=== PATIENT | male | born 1950 | race Caucasian/White ===

== ENCOUNTER 2016-12-09 16:40 | Emergency (ER) | payer SELFPAY ==
[2016-12-09] MEDS ORDERED: Nitroglycerin 0.4 MG TAB (25 Tab Bottle) ONE (16:55)
[2016-12-09] MEDS ORDERED: Nitroglycerin 2% Ointment 1 INCH/1 GM Packet ONE (16:55)
[2016-12-09 17:00] LABS: #Basophils 0.1 thou/uL (0.0-0.2); #Eosinphils 0.2 thou/uL (0.0-0.7); #Monocytes 0.8 thou/uL (0.11-0.59); %Basophils 1.2 % (0.0-1.0); %Eosinophils 1.6 % (0.0-10.0); %Lymphocytes 29.4 % (21.0-51.0); %Monocytes 8.2 % (0.0-10.0); %Neutrophils 59.7 % (42.0-75.0); Hemoglobin 16.2 g/dL (14.0-18.0); Mean Corpuscular HGB CONC 32.9 g/dL (32.0-36.0); Mean Corpuscular Hemoglobin 28.3 pg (27.0-31.0); Mean Corpuscular Volume 86.2 fl (80.0-94.0); Mean Platelet Volume 7.5 fL (7.4-10.4); Platelet Count 230 thou/uL (130-400); RBC Distribution Width 12.1 % (11.5-14.5); Red Blood Cell (RBC) Count 5.73 mill/uL (4.70-6.10)
[2016-12-09 17:06] LABS: PTT 26.5 SEC (22.9-36.1); Prothrombin Time 13.5 SEC (12.0-14.7)
[2016-12-09 17:13] LABS: ALT (SGPT) 42 U/L (0-55); AST (SGOT) 32 U/L (5-34); Alkaline Phosphatase 75 U/L (40-150); Anion Gap 12 mmol/L (10-20); BUN (Urea Nitrogen) 15 mg/dL (8.4-25.7); Bilirubin, Total 0.5 mg/dL (0.2-1.2); Calc. Creatinine Clearance 0 mL/min (70-130); Calcium 9.3 mg/dL (7.8-10.44); Carbon Dioxide 23 mmol/L (23-31); Chloride 107 mmol/L (98-107); Estimated GFR-MDRD 67; Globulin 3.3 g/dL (2.4-3.5); Glucose 96 mg/dL (80-115); Lipase 57 U/L (8-78); Potassium 4.2 mmol/L (3.5-5.1); Protein, Total 7.3 g/dL (5.8-8.1); Sodium 138 mmol/L (136-145)
[2016-12-09 17:16] LABS: CKMB 1.9 ng/mL (0-6.6); Troponin I Less than 0.010 ng/mL (< 0.028)
[2016-12-09] MEDS ORDERED: Enoxaparin Sodium 100 MG/ML SYRINGE ONE (17:17)
[2016-12-09] MEDS ORDERED: Nitroglycerin 50 MG/250 ML BOT 250 ML ONE (17:32)
--- NOTE | 2016-12-09 21:49 | RAD ---
PORTABLE CHEST 12/09/16 An AP portable film at 1700 is compared with an 05/06/15 study. Mild to moderate cardiomegaly is about the same. There is no clear congestive change at the moment. No large lobar infiltrate was seen. It is very difficulty in this patient to completely clear the le ft base of infiltrate due to the portable technique and overlapping soft tissues. The trachea is mid line. IMPRESSION: Cardiomegaly. Left base seen poorly. POS: HOME
== END 2016-12-09 18:33 | disposition short-term general hospital (02) ==
LOC: BURERS 16:40
DX: I20.0 Unstable angina (principal); I10 Essential (primary) hypertension; Z79.82 Long term (current) use of aspirin; Z79.899 Other long term (current) drug therapy
CPT/HCPCS: 71010; 80053; 82553; 83690; 84484; 85025; 85379; 85610; 85730; 93005; 94760; 96365; 96372; J1650

== ENCOUNTER 2017-11-05 11:09 | Emergency (ER) | payer OTHER, SELFPAY ==
[2017-11-05 11:35] LABS: Bilirubin Negative (Negative); Blood, Urine Trace (Negative); Clarity Slightly Cloudy (Clear); Glucose, Urine (Dipstick) Negative (Negative); Leukocyte Negative (Negative); Nitrite Negative (Negative); Protein, Urine (Dipstick) Negative (Neg-Trace); Specific Gravity, Urine 1.025 (1.005-1.030)
[2017-11-05 11:42] LABS: Bacteria/HPF Rare-Few HPF (None Seen); RBC/HPF 0-3 HPF (0-3); Squamous Epithelial None Seen HPF (0-3); WBC/HPF 0-3 HPF (0-3)
[2017-11-05 11:45] LABS: #Basophils 0.1 thou/uL (0.0-0.2); #Eosinphils 0.1 thou/uL (0.0-0.7); #Lymphocytes 1.8 thou/uL (1.20-3.40); #Monocytes 1.1 thou/uL (0.11-0.59); #Neutrophils 9.1 thou/uL (1.40-6.50); %Basophils 1.1 % (0.0-1.0); %Eosinophils 0.7 % (0.0-10.0); %Lymphocytes 15.1 % (21.0-51.0); %Monocytes 8.9 % (0.0-10.0); %Neutrophils 74.3 % (42.0-75.0); Hemoglobin 17.4 g/dL (14.0-18.0); Mean Corpuscular Hemoglobin 28.7 pg (27.0-31.0); Mean Corpuscular Volume 84.5 fl (80.0-94.0); Mean Platelet Volume 7.9 fL (7.4-10.4); Platelet Count 171 thou/uL (130-400); RBC Distribution Width 12.3 % (11.5-14.5); Red Blood Cell (RBC) Count 6.04 mill/uL (4.70-6.10); White Blood Cell (WBC) Count 12.2 thou/uL (4.8-10.8)
[2017-11-05] MEDS ORDERED: Lorazepam 2 MG/ML VIAL ONE (11:48)
[2017-11-05 12:02] LABS: ALT (SGPT) 39 U/L (8-55); AST (SGOT) 34 U/L (5-34); Albumin 3.8 g/dL (3.4-4.8); Alkaline Phosphatase 64 U/L (40-150); Anion Gap 15 mmol/L (10-20); BUN (Urea Nitrogen) 16 mg/dL (8.4-25.7); Calc. Creatinine Clearance 0 mL/min (70-130); Calcium 9.3 mg/dL (7.8-10.44); Carbon Dioxide 21 mmol/L (23-31); Chloride 106 mmol/L (98-107); Estimated GFR-MDRD 46; Globulin 3.2 g/dL (2.4-3.5); Glucose 104 mg/dL (80-115); Potassium 4.2 mmol/L (3.5-5.1); Sodium 138 mmol/L (136-145)
[2017-11-05] MEDS ORDERED: Morphine 4 MG/ML Carpuject ONE (12:22)
[2017-11-05] MEDS ORDERED: Ondansetron HCl/PF 4 MG/2 ML Vial ONE (12:22)
--- NOTE | 2017-11-05 16:41 | CT ---
CT ABDOMEN AND PELVIS WITHOUT CONTRAST 11/05/[address] of the abdomen and pelvis was performed for evaluation of left flank pain and inability to void. Axial slices were acquired, then coronal reconstructions were done. The lung bases show that there is a very large amount of mediastinal fat and apparently some of the mesenteric fat has herniated through the diaphragm centrally. The liver, spleen, pancreas, adrenal gl ands, and abdominal aorta showed no acute findings. The gallbladder is a bit denser than usual but no calcifications or stranding were seen around it. Renal calculi are present bilaterally with a very large one present in the lower pole of the left kid robin. Additionally, there is a 5 mm proximal left ureteral calculus just a few centimeters below the U PJ causing moderate left hydronephrosis. The ureters assume a more normal size after that point. The urinary bladder is decompressed. No free air or free fluid was seen in the abdomen. The bowel shows no sign of obstruction or inflamma tory change. The appendix appears normal. Diverticulosis without diverticulitis is noted. A very mini mal fat filled umbilical hernia was present. CT of the pelvis shows no pelvic masses, fluid collections, or inflammatory changes. I cannot really evaluate the urinary bladder well as there does not appear to be any fluid within it at the moment. D ensity within is presumably due to it being either collapsed and/or prostatic enlargement. The urinar y bladder may deserve further followup after this acute episode. IMPRESSION: 1. 5 mm proximal left ureteral calculus causing moderate left hydronephrosis. 2. Bilateral renal calculi, predominantly on the patient's left side. 3. Urinary bladder decompressed. I cannot tell if there is actually tissue within the bladder or it is just merely decompressed. Elective ultrasound followup with better distention of the bladder w ould be prudent. 4. 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 POS: HOME
== END 2017-11-05 12:49 | disposition home or self-care (01) ==
LOC: BURERS 11:09
DX: N13.2 Hydronephrosis with renal and ureteral calculous obstruction (principal); I10 Essential (primary) hypertension; I25.2 Old myocardial infarction; Z79.899 Other long term (current) drug therapy; Z79.82 Long term (current) use of aspirin
CPT/HCPCS: 74176; 80053; 81003; 81015; 85025; 96374; 96375; J2060; J2270; J2405

== ENCOUNTER 2018-07-08 08:33 | Emergency (ER) | payer MEDICAID ==
--- NOTE | 2018-07-08 10:42 | RAD ---
THREE VIEWS RIGHT WRIST: DATE: 07/08/2018. HISTORY: Right wrist pain. FINDINGS: There is osteoarthritis involving the 1st carpometacarpal joint and metacarpophalangeal joint of the thumb. No fracture or dislocation is seen. No other osseous abnormality. IMPRESSION: Osteoarthritis, but no acute osseous abnormality is seen involving the right wrist. POS: [facility]
--- NOTE | 2018-07-08 10:45 | RAD ---
THREE VIEWS RIGHT SHOULDER: DATE: 07/08/2018. HISTORY: Right shoulder pain after injury. FINDINGS: There is right acromioclavicular joint osteoarthritis. The coracoclavicular and acromioclavicular di stances are within normal limits. No fracture or dislocation is seen involving the right shoulder. There is a radiopaque density overlying the upper aspect of the right shoulder likely related to over lying artifact, but clinical correlation is recommended. No other findings. IMPRESSION: 1. No acute osseous abnormality of the right shoulder. 2. Right acromioclavicular joint osteoarthritis. 3. Radiopaque density overlying right shoulder which overlies the distal right clavicle and supracla vicular soft tissues which is most likely attributable to overlying artifact. Clinical correlation i s recommended. POS: [facility]
== END 2018-07-08 09:30 | disposition home or self-care (01) ==
LOC: BURERS 08:33
DX: S43.401A Unspecified sprain of right shoulder joint, initial encounter (principal); I10 Essential (primary) hypertension; I25.2 Old myocardial infarction; E78.00 Pure hypercholesterolemia, unspecified; Z79.82 Long term (current) use of aspirin; Z79.899 Other long term (current) drug therapy; W01.0XXA Fall on same level from slipping, tripping and stumbling without subsequent striking against object, initial encounter

== ENCOUNTER 2018-09-09 12:11 | Outpatient (CLI) | payer MEDICARE, MEDICAID ==
--- NOTE | 2018-09-09 15:54 | CT ---
CT ABDOMEN AND PELVIS WITHOUT CONTRAST 09/09/[address] of the abdomen and abdomen and pelvis was done for evaluation of right flank pain. comparis on is made with a prior study dated 11/05/17. Axial slices were acquired, then coronal reconstructions were obtained. The lung bases are clear except for some dependent atelectasis or scarring. The liver, spleen, pancre as, gallbladder, adrenal glands and abdominal aorta showed no acute findings. A large calculus is se en in the lower pole of the left kidney as before. It is similar in appearance. No other renal calcul i were seen. While there is no hydronephrosis, there is a small calcification seen anterior to the ri t common iliac artery that measures 2 to 3 mm in size. It was not present on the October 2017 scan . I suspect it may be a small nonobstructing calculus given the history of right flank pain. There is certainly no ureteral dilation, however. The bowel shows no distention or inflammatory change around it. No free air or free fluid was seen. A few scattered diverticula are present. A minimal fat filled umbilical hernia is present. CT of the pelvis shows no external masses, fluid collections or inflammatory changes. Attention is d rawn to the urinary bladder. On the prior scan it was mentioned that it was collapsed and could not b e completely evaluated. There was some soft tissue density in it of uncertain etiology. This continue s to be present on today's scan in a similar fashion. I feel it is very important for this patient to be referred to a urologist for evaluation of the bladder. I cannot rule out internal pathology. Degenerative changes are prominent in the lumbar spine. There is a compression of the T12 vertebra wh ich has been mentioned previously. IMPRESSION: 1. Large left renal calculus, stable. 2. Small calcification in or near the lower right ureter at about the S1 level. Not present on a October scan. The possibility of a tiny nonobstructing 2-3 mm ureteral calculus is raised, given t he current presentation of right flank pain. 3. Soft tissue density continues in the collapsed urinary bladder. Further workup is needed to r ule out pathology. Findings and need for followup with urologist discussed with Leah Horowitz at 1303 on 09/09/18. POS: HOME
== END 2018-09-09 12:12 | disposition home or self-care (01) ==
LOC: BURRAD 12:11
PROVIDERS: ATTEND Physician Assistant
DX: R10.9 Unspecified abdominal pain (principal); N20.0 Calculus of kidney; N28.89 Other specified disorders of kidney and ureter; N32.89 Other specified disorders of bladder
CPT/HCPCS: 74176

== ENCOUNTER 2018-09-11 21:25 | Emergency (ER) | payer MEDICAID, MEDICARE | END 2018-09-11 21:38 | disposition home or self-care (01) | LOC: BURERS 21:25 | DX: B02.9 Zoster without complications (principal); I10 Essential (primary) hypertension; I25.2 Old myocardial infarction; E78.00 Pure hypercholesterolemia, unspecified; Z79.82 Long term (current) use of aspirin; Z79.899 Other long term (current) drug therapy | CPT/HCPCS: 99282 ==

== ENCOUNTER 2018-10-12 16:54 | Emergency (ER) | payer MEDICARE, MEDICAID ==
[2018-10-12 17:13] LABS: Clarity Cloudy (Clear)
[2018-10-12 17:14] LABS: Glucose, Urine (Dipstick) Unable to Interpret mg/dL (Negative); Protein, Urine (Dipstick) Unable to Interpret mg/dL (Neg-Trace); Specific Gravity, Urine 1.025 (1.005-1.030)
[2018-10-12 17:15] LABS: Bilirubin Unable to Interpret (Negative); Urobilinogen UNABLE TO INTERPRET mg/dL (0.2-1.0)
[2018-10-12 17:19] LABS: Squamous Epithelial 0-3 HPF (0-3); WBC/HPF 21-50 HPF (0-3)
[2018-10-12 17:20] LABS: Bacteria/HPF 2+ HPF (None Seen); Other Microscopic Description MOCOUS THREADS; RBC/HPF 0-3 HPF (0-3)
[2018-10-12] MEDS ORDERED: Sulfameth/Trimethoprim DS 800-160mg TAB ONE (17:31)
[2018-10-13 06:17] LABS: Leukocyte Unable to Interpret (Negative)
[2018-10-13 06:25] LABS: Nitrite Unable to Interpret (Negative)
[2018-10-13 06:26] LABS: Blood, Urine Unable to Interpret (Negative)
== END 2018-10-12 17:34 | disposition home or self-care (01) ==
LOC: BURERS 16:54
DX: N30.00 Acute cystitis without hematuria (principal); I10 Essential (primary) hypertension; E78.00 Pure hypercholesterolemia, unspecified; I25.2 Old myocardial infarction; Z79.82 Long term (current) use of aspirin; Z79.899 Other long term (current) drug therapy; Z87.442 Personal history of urinary calculi
CPT/HCPCS: 81003; 81015; 99283

== ENCOUNTER 2019-04-16 15:30 | Emergency (ER) | payer MEDICARE, MEDICAID ==
[2019-04-16] MEDS ORDERED: Lisinopril 20 MG TAB ONE (16:17)
[2019-04-16 16:26] LABS: Band 1 % (5-11); Eosinophils 1 % (0-10); Hemoglobin 15.9 g/dL (14.0-18.0); Lymphocytes 32 % (21-51); MDiff Complete? YES; Mean Corpuscular HGB CONC 32.2 g/dL (32.0-36.0); Mean Corpuscular Hemoglobin 27.7 pg (27.0-31.0); Mean Corpuscular Volume 86.3 fL (78.0-98.0); Mean Platelet Volume 6.9 fL (7.4-10.4); Monocytes 6 % (0-10); Neutrophil 60 % (42-75); Platelet Count 195 thou/uL (130-400); RBC Distribution Width 12.6 % (11.5-14.5); Red Blood Cell (RBC) Count 5.71 mill/uL (4.70-6.10); White Blood Cell (WBC) Count 9.4 thou/uL (4.8-10.8)
--- NOTE | 2019-04-16 17:35 | RAD ---
CHEST ONE VIEW: INDICATIONS: Shortness of breath. COMPARISON: Prior exam dated 03/30/2019. FINDINGS: There is cardiomegaly and pulmonary vascular congestion. There is left basilar opacity, suspicious f or atelectasis. No definite pleural effusion or pneumothorax is evident. No acute osseous abnormali ty is evident. IMPRESSION: 1. Cardiomegaly with pulmonary vascular congestion. 2. Left basilar opacity, suspicious for atelectasis. POS: [facility]
[2019-04-16 18:32] LABS: ALT (SGPT) 41 U/L (8-55); AST (SGOT) 36 U/L (5-34); Albumin 4.1 g/dL (3.4-4.8); Alkaline Phosphatase 74 U/L (40-150); Anion Gap 14 mmol/L (10-20); BUN (Urea Nitrogen) 15 mg/dL (8.4-25.7); Bilirubin, Total 0.5 mg/dL (0.2-1.2); Calc. Creatinine Clearance 0 mL/min (70-130); Calcium 9.7 mg/dL (7.8-10.44); Carbon Dioxide 21 mmol/L (23-31); Chloride 107 mmol/L (98-107); Estimated GFR-MDRD 65; Globulin 2.7 g/dL (2.4-3.5); Glucose 102 mg/dL (80-115); Protein, Total 6.8 g/dL (5.8-8.1); Sodium 138 mmol/L (136-145)
== END 2019-04-16 17:05 | disposition home or self-care (01) ==
LOC: BURERS 15:30
DX: I10 Essential (primary) hypertension (principal); I25.2 Old myocardial infarction; Z79.899 Other long term (current) drug therapy; Z87.442 Personal history of urinary calculi; Z79.82 Long term (current) use of aspirin
CPT/HCPCS: 71045; 80053; 83880; 84484; 85025; 85379; 93005

== ENCOUNTER 2019-06-08 11:34 | Emergency (ER) | payer MEDICARE, MEDICAID ==
[2019-06-08 12:14] LABS: #Basophils 0.1 thou/uL (0.0-0.2); #Eosinphils 0.1 thou/uL (0.0-0.7); #Lymphocytes 1.8 thou/uL (1.20-3.40); #Monocytes 0.4 thou/uL (0.11-0.59); #Neutrophils 3.7 thou/uL (1.40-6.50); %Basophils 1.2 % (0.0-1.0); %Eosinophils 1.4 % (0.0-10.0); %Lymphocytes 29.4 % (21.0-51.0); %Monocytes 6.8 % (0.0-10.0); %Neutrophils 61.3 % (42.0-75.0); Hemoglobin 16.3 g/dL (14.0-18.0); Mean Corpuscular HGB CONC 33.1 g/dL (32.0-36.0); Mean Corpuscular Hemoglobin 28.1 pg (27.0-31.0); Mean Corpuscular Volume 84.9 fL (78.0-98.0); Mean Platelet Volume 6.7 fL (7.4-10.4); Platelet Count 192 thou/uL (130-400); RBC Distribution Width 12.6 % (11.5-14.5); Red Blood Cell (RBC) Count 5.79 mill/uL (4.70-6.10); White Blood Cell (WBC) Count 6.1 thou/uL (4.8-10.8)
[2019-06-08 12:25] LABS: ALT (SGPT) 47 U/L (8-55); AST (SGOT) 44 U/L (5-34); Albumin 3.9 g/dL (3.4-4.8); Alkaline Phosphatase 68 U/L (40-150); Anion Gap 14 mmol/L (10-20); BUN (Urea Nitrogen) 15 mg/dL (8.4-25.7); Bilirubin, Total 0.8 mg/dL (0.2-1.2); Calc. Creatinine Clearance 0 mL/min (70-130); Calcium 9.7 mg/dL (7.8-10.44); Carbon Dioxide 25 mmol/L (23-31); Chloride 104 mmol/L (98-107); Estimated GFR-MDRD 62; Globulin 3.1 g/dL (2.4-3.5); Glucose 292 mg/dL (80-115); Potassium 3.9 mmol/L (3.5-5.1); Sodium 139 mmol/L (136-145)
== END 2019-06-08 12:57 | disposition home or self-care (01) ==
LOC: BURERS 11:34
DX: M25.562 Pain in left knee (principal); I10 Essential (primary) hypertension; E78.00 Pure hypercholesterolemia, unspecified; Z86.718 Personal history of other venous thrombosis and embolism; Z79.899 Other long term (current) drug therapy; Z79.82 Long term (current) use of aspirin; I25.2 Old myocardial infarction
CPT/HCPCS: 80053; 83880; 85025; 85379; 99283

== ENCOUNTER 2019-08-27 10:49 | Emergency (ER) | payer MEDICARE, MEDICAID | END 2019-08-27 11:12 | disposition home or self-care (01) | LOC: BURERS 10:49 | DX: J06.9 Acute upper respiratory infection, unspecified (principal); I10 Essential (primary) hypertension; Z87.442 Personal history of urinary calculi; Z86.718 Personal history of other venous thrombosis and embolism; Z79.82 Long term (current) use of aspirin; Z79.899 Other long term (current) drug therapy | CPT/HCPCS: 99283 ==

== ENCOUNTER 2019-09-11 08:22 | Emergency (ER) | payer MEDICARE, MEDICAID ==
[2019-09-11] MEDS ORDERED: HYDROcodone/Acetaminophen 10/325 mg Tablet ONE (08:38)
[2019-09-11] MEDS ORDERED: AMOXicillin 250 MG CAP ONE (08:40)
== END 2019-09-11 08:53 | disposition home or self-care (01) ==
LOC: BURERS 08:22
DX: K04.7 Periapical abscess without sinus (principal); I10 Essential (primary) hypertension; E78.00 Pure hypercholesterolemia, unspecified; Z86.718 Personal history of other venous thrombosis and embolism; Z87.442 Personal history of urinary calculi; Z79.899 Other long term (current) drug therapy; Z79.82 Long term (current) use of aspirin; I25.2 Old myocardial infarction
CPT/HCPCS: 99283

== ENCOUNTER 2020-01-18 13:40 | Emergency (ER) | payer MEDICARE, MEDICAID ==
[2020-01-18 14:08] LABS: #Basophils 0.1 thou/uL (0.0-0.2); #Eosinphils 0.1 thou/uL (0.0-0.7); #Lymphocytes 2.6 thou/uL (1.20-3.40); #Neutrophils 6.5 thou/uL (1.40-6.50); %Eosinophils 1.3 % (0.0-10.0); %Lymphocytes 25.4 % (21.0-51.0); %Monocytes 9.6 % (0.0-10.0); %Neutrophils 62.7 % (42.0-75.0); Hemoglobin 17.8 g/dL (14.0-18.0); Mean Corpuscular HGB CONC 32.8 g/dL (32.0-36.0); Mean Corpuscular Hemoglobin 28.6 pg (27.0-31.0); Mean Corpuscular Volume 87.1 fL (78.0-98.0); Mean Platelet Volume 7.9 fL (7.4-10.4); Platelet Count 231 thou/uL (130-400); RBC Distribution Width 12.3 % (11.5-14.5); Red Blood Cell (RBC) Count 6.22 mill/uL (4.70-6.10); White Blood Cell (WBC) Count 10.3 thou/uL (4.8-10.8)
[2020-01-18 14:16] LABS: ALT (SGPT) 48 U/L (8-55); AST (SGOT) 41 U/L (5-34); Albumin 4.1 g/dL (3.4-4.8); Alkaline Phosphatase 70 U/L (40-110); Anion Gap 14 mmol/L (10-20); BUN (Urea Nitrogen) 12 mg/dL (8.4-25.7); Bilirubin, Total 0.7 mg/dL (0.2-1.2); Calc. Creatinine Clearance 0 mL/min (70-130); Calcium 10.1 mg/dL (7.8-10.44); Carbon Dioxide 23 mmol/L (23-31); Chloride 106 mmol/L (98-107); Estimated GFR-MDRD 53; Globulin 3.2 g/dL (2.4-3.5); Glucose 179 mg/dL (80-115); Protein, Total 7.3 g/dL (5.8-8.1); Sodium 139 mmol/L (136-145)
--- NOTE | 2020-01-18 16:52 | RAD ---
CHEST TWO VIEWS: 01/18/20 Comparison is made with the prior study of 04/16/19. Mild cardiomegaly is about the same as before. There is no vascular congestion or edema. There may be some basilar atelectasis or scarring. IMPRESSION: No acute thoracic findings. Exam similar to the 2019 study. POS: HOME
--- NOTE | 2020-01-18 18:10 | CT ---
CT ANGIO OF THE CHEST 01/18/20 COMPARISON: Comparison is made with the lower chest slices on a CT abdomen and pelvis done 10/04/18. A bolus of IV contrast was given, however, the triggering mechanism on the CT was mistimed so these a re mainly arterial phase images with very little contrast in the pulmonary arterial system. As such, the sensitivity to pulmonary embolism is quite low. While there is no obvious large defects in the central pulmonary arteries, the phase of contrast imani pherally yields this as a basically indeterminate study for pulmonary embolism. There is no sign of a ortic aneurysm or dissection. Calcification appears to be present in the left main coronary artery an d in the LAD. There may be some in the right coronary as well. There is no sign of pericardial effusi on. 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 This was present on last year's CT scan, so is not new. The lungs themselves showed no major infiltrate or effusion. There are some areas of ple ural thickening and fatty deposition in the pleura, particularly posteriorly adjacent to the lower lo bes. This is similar to the prior study as well. Scans in the upper abdomen showed a portion of the l iver and spleen but not all of them. The visible areas showed no acute change. The adrenal glands wer e not surveyed. IMPRESSION: Indeterminate study for pulmonary embolism. Given the patient's low GFR, one may need to wait to rein ject him. A nuclear VQ scan may be an option in the interim. Findings discussed with Dr. Beckwith at 1520 on 01/18/2020. POS: HOME
== END 2020-01-18 16:57 | disposition home or self-care (01) ==
LOC: BURERS 13:40
DX: R06.00 Dyspnea, unspecified (principal); I10 Essential (primary) hypertension; E78.00 Pure hypercholesterolemia, unspecified; I25.2 Old myocardial infarction; Z86.718 Personal history of other venous thrombosis and embolism; Z87.442 Personal history of urinary calculi; Z79.82 Long term (current) use of aspirin; Z79.899 Other long term (current) drug therapy
CPT/HCPCS: 71046; 71275; 80053; 83880; 84484; 85025; 85379; 93005; 94760; 96360; 96361

== ENCOUNTER 2020-12-10 14:42 | Emergency (ER) | payer MEDICARE, MEDICAID ==
[2020-12-10 15:29] LABS: #Basophils 0.1 thou/uL (0.0-0.2); #Eosinphils 0.1 thou/uL (0.0-0.7); #Lymphocytes 2.2 thou/uL (1.20-3.40); #Monocytes 0.7 thou/uL (0.11-0.59); #Neutrophils 3.6 thou/uL (1.40-6.50); %Basophils 1.1 % (0.0-1.0); %Eosinophils 1.9 % (0.0-10.0); %Lymphocytes 33.3 % (21.0-51.0); %Monocytes 10.2 % (0.0-10.0); %Neutrophils 53.4 % (42.0-75.0); Mean Corpuscular HGB CONC 33.5 g/dL (32.0-36.0); Mean Corpuscular Hemoglobin 28.7 pg (27.0-31.0); Mean Corpuscular Volume 85.8 fL (78.0-98.0); Mean Platelet Volume 8.4 fL (7.4-10.4); Platelet Count 176 thou/uL (130-400); RBC Distribution Width 12.6 % (11.5-14.5); Red Blood Cell (RBC) Count 5.92 mill/uL (4.70-6.10); White Blood Cell (WBC) Count 6.7 thou/uL (4.8-10.8)
[2020-12-10 15:41] LABS: ALT (SGPT) 55 U/L (8-55); AST (SGOT) 46 U/L (5-34); Albumin 3.8 g/dL (3.4-4.8); Alkaline Phosphatase 69 U/L (40-110); Anion Gap 14 mmol/L (10-20); BUN (Urea Nitrogen) 16 mg/dL (8.4-25.7); Bilirubin, Total 0.5 mg/dL (0.2-1.2); Calc. Creatinine Clearance 0 mL/min (70-130); Calcium 9.4 mg/dL (7.8-10.44); Carbon Dioxide 23 mmol/L (23-31); Chloride 107 mmol/L (98-107); Glucose 176 mg/dL (80-115); Potassium 3.8 mmol/L (3.5-5.1); Protein, Total 6.8 g/dL (5.8-8.1); Sodium 140 mmol/L (136-145)
[2020-12-10] MEDS ORDERED: Nitroglycerin 2% Ointment 1 INCH/1 GM Packet ONE (19:08)
[2020-12-10] MEDS ORDERED: Nitroglycerin 0.4 MG TAB 1 EACH ONE (19:08)
[2020-12-10] MEDS ORDERED: Furosemide 40 MG/4 ML VIAL ONE (19:08)
== END 2020-12-10 21:47 | disposition short-term general hospital (02) ==
LOC: BURERS 14:42
DX: I11.0 Hypertensive heart disease with heart failure (principal); I50.9 Heart failure, unspecified; I25.2 Old myocardial infarction; E78.00 Pure hypercholesterolemia, unspecified; Z86.73 Personal history of transient ischemic attack (TIA), and cerebral infarction without residual deficits; Z79.899 Other long term (current) drug therapy
CPT/HCPCS: 71046; 80053; 83880; 84484; 85025; 93005; 96374; J1940

== ENCOUNTER 2021-11-01 12:12 | Emergency (ER) | payer MEDICARE, MEDICAID | END 2021-11-01 12:32 | disposition home or self-care (01) | LOC: BURERS 12:12 | DX: S50.862A Insect bite (nonvenomous) of left forearm, initial encounter (principal); I10 Essential (primary) hypertension; I25.2 Old myocardial infarction; Z86.718 Personal history of other venous thrombosis and embolism; Z79.899 Other long term (current) drug therapy; W57.XXXA Bitten or stung by nonvenomous insect and other nonvenomous arthropods, initial encounter | CPT/HCPCS: 99282 ==

== ENCOUNTER 2022-03-20 16:56 | Emergency (ER) | payer OTHER ==
[2022-03-20] MEDS ORDERED: Iopamidol 370 76% 100 ML VIAL FS ONE (16:57)
[2022-03-20 17:24] LABS: #Basophils 0.1 thou/uL (0.0-0.2); #Eosinphils 0.1 thou/uL (0.0-0.7); #Lymphocytes 2.2 thou/uL (1.20-3.40); #Monocytes 1.2 thou/uL (0.11-0.59); #Neutrophils 11.5 thou/uL (1.40-6.50); %Basophils 0.9 % (0.0-1.0); %Eosinophils 0.6 % (0.0-10.0); %Lymphocytes 14.7 % (21.0-51.0); %Neutrophils 75.8 % (42.0-75.0); Hemoglobin 16.5 g/dL (14.0-18.0); Mean Corpuscular HGB CONC 34.2 g/dL (32.0-36.0); Mean Corpuscular Hemoglobin 29.2 pg (27.0-31.0); Mean Corpuscular Volume 85.4 fL (78.0-98.0); Mean Platelet Volume 7.4 fL (7.4-10.4); Platelet Count 214 thou/uL (130-400); RBC Distribution Width 12.1 % (11.5-14.5); Red Blood Cell (RBC) Count 5.66 mill/uL (4.70-6.10); White Blood Cell (WBC) Count 15.1 thou/uL (4.8-10.8)
[2022-03-20 17:34] LABS: Bilirubin Negative (Negative); Blood, Urine Trace (Negative); Clarity Clear (Clear); Glucose, Urine (Dipstick) Negative (Negative); Ketone, Urine Negative (Negative); Leukocyte Trace (Negative); Nitrite Negative (Negative); Protein, Urine (Dipstick) Trace mg/dL (Neg-Trace); Urobilinogen > or = 8.0 mg/dL (Less than 2); pH, Urine 6.5 (5.0-9.0)
[2022-03-20 17:37] LABS: ALT (SGPT) 27 U/L (8-55); AST (SGOT) 27 U/L (5-34); Albumin 4.1 g/dL (3.4-4.8); Alkaline Phosphatase 83 U/L (40-110); Anion Gap 16 mmol/L (10-20); BUN (Urea Nitrogen) 15 mg/dL (8.4-25.7); Bilirubin, Total 1.1 mg/dL (0.2-1.2); Calc. Creatinine Clearance 0 mL/min (70-130); Calcium 9.3 mg/dL (7.8-10.44); Carbon Dioxide 23 mmol/L (23-31); Chloride 107 mmol/L (98-107); Estimated GFR 83; Globulin 2.9 g/dL (2.4-3.5); Glucose 103 mg/dL (80-115); Potassium 3.8 mmol/L (3.5-5.1); Sodium 142 mmol/L (136-145)
[2022-03-20 17:40] LABS: Bacteria/HPF 1+ HPF (None Seen); RBC/HPF 0-3 HPF (0-3); Squamous Epithelial 0-3 HPF (0-3)
[2022-03-20] MEDS ORDERED: Midazolam HCl 2 mg/2 ml Vial ONE (17:54)
== END 2022-03-20 18:44 | disposition home or self-care (01) ==
LOC: BURERS 16:56
DX: K57.32 Diverticulitis of large intestine without perforation or abscess without bleeding (principal); I10 Essential (primary) hypertension; Z79.899 Other long term (current) drug therapy
CPT/HCPCS: 74177; 80053; 81003; 81015; 83605; 85025; 87086; 96374; J2250; Q9967

== ENCOUNTER 2023-01-07 11:11 | Emergency (ER) | payer OTHER ==
[2023-01-07 11:50] LABS: Bilirubin Negative (Negative); Blood, Urine Negative (Negative); Clarity Clear (Clear); Glucose, Urine (Dipstick) Negative (Negative); Ketone, Urine Negative (Negative); Leukocyte Negative (Negative); Nitrite Negative (Negative); Protein, Urine (Dipstick) Negative (Neg-Trace)
[2023-01-07] MEDS ORDERED: Aspirin Chewable 81 MG TAB ONE (12:13)
[2023-01-07] MEDS ORDERED: Ketorolac Tromethamine 30 MG/ML VIAL ONE (12:13)
[2023-01-07 12:15] LABS: #Basophils 0.1 thou/uL (0.0-0.2); #Eosinphils 0.1 thou/uL (0.0-0.7); #Monocytes 0.7 thou/uL (0.11-0.59); #Neutrophils 5.2 thou/uL (1.40-6.50); %Basophils 1.3 % (0.0-1.0); %Lymphocytes 24.6 % (21.0-51.0); %Monocytes 8.5 % (0.0-10.0); %Neutrophils 64.7 % (42.0-75.0); Hemoglobin 16.6 g/dL (14.0-18.0); Mean Corpuscular HGB CONC 33.8 g/dL (32.0-36.0); Mean Corpuscular Hemoglobin 29.2 pg (27.0-31.0); Mean Corpuscular Volume 86.4 fl (78.0-98.0); Platelet Count 190 10x3/uL (130-400); RBC Distribution Width 11.6 % (11.5-14.5); Red Blood Cell (RBC) Count 5.69 mill/uL (4.70-6.10); White Blood Cell (WBC) Count 8.1 10x3/uL (4.8-10.8)
[2023-01-07] MEDS ORDERED: Furosemide 100 MG/10 ML VIAL ONE (12:18)
[2023-01-07] MEDS ORDERED: Nitroglycerin 2% Ointment 1 INCH/1 GM Packet ONE (12:18)
[2023-01-07 12:24] LABS: ALT (SGPT) 27 U/L (8-55); AST (SGOT) 26 U/L (5-34); Albumin 4.1 g/dL (3.4-4.8); Alkaline Phosphatase 78 U/L (40-110); Anion Gap 11 mmol/L (10-20); BUN (Urea Nitrogen) 12 mg/dL (8.4-25.7); Bilirubin, Total 0.8 mg/dL (0.2-1.2); Calc. Creatinine Clearance 0 mL/min (70-130); Calcium 9.4 mg/dL (7.8-10.44); Carbon Dioxide 24 mmol/L (23-31); Chloride 109 mmol/L (98-107); Estimated GFR 79; Globulin 2.7 g/dL (2.4-3.5); Glucose 109 mg/dL (80-115); Lipase 40 U/L (8-78); Potassium 3.9 mmol/L (3.5-5.1); Protein, Total 6.8 g/dL (5.8-8.1); Sodium 140 mmol/L (136-145)
[2023-01-07] MEDS ORDERED: Lorazepam 2 MG/ML VIAL ONE (13:03)
== END 2023-01-07 13:55 | disposition home or self-care (01) ==
LOC: BURERS 11:11
DX: S22.080A Wedge compression fracture of T11-T12 vertebra, initial encounter for closed fracture (principal); N20.0 Calculus of kidney; R60.9 Edema, unspecified; I10 Essential (primary) hypertension; I25.2 Old myocardial infarction; E78.00 Pure hypercholesterolemia, unspecified; X58.XXXA Exposure to other specified factors, initial encounter; Z86.718 Personal history of other venous thrombosis and embolism; Z79.899 Other long term (current) drug therapy
CPT/HCPCS: 71045; 74176; 80053; 81003; 83690; 83880; 84484; 85025; 93005; 94760; 96374; 96375; J1885; J1940; J2060

== ENCOUNTER 2023-04-21 11:36 | Emergency (ER) | payer OTHER, MEDICAID ==
[2023-04-21 12:31] LABS: #Basophils 0.1 thou/uL (0.0-0.2); #Eosinphils 0.1 thou/uL (0.0-0.7); #Lymphocytes 1.9 thou/uL (1.20-3.40); #Monocytes 0.5 thou/uL (0.11-0.59); %Basophils 0.9 % (0.0-1.0); %Eosinophils 1.9 % (0.0-10.0); %Lymphocytes 29.1 % (21.0-51.0); %Monocytes 7.9 % (0.0-10.0); %Neutrophils 60.2 % (42.0-75.0); Hemoglobin 16.3 g/dL (14.0-18.0); Mean Corpuscular HGB CONC 33.1 g/dL (32.0-36.0); Mean Corpuscular Hemoglobin 28.2 pg (27.0-31.0); Mean Corpuscular Volume 85.2 fl (78.0-98.0); Mean Platelet Volume 7.4 fL (7.4-10.4); Platelet Count 209 10x3/uL (130-400); RBC Distribution Width 11.5 % (11.5-14.5); Red Blood Cell (RBC) Count 5.77 mill/uL (4.70-6.10); White Blood Cell (WBC) Count 6.6 10x3/uL (4.8-10.8)
[2023-04-21 12:40] LABS: ALT (SGPT) 35 U/L (8-55); AST (SGOT) 31 U/L (5-34); Albumin 3.9 g/dL (3.4-4.8); Alkaline Phosphatase 68 U/L (40-110); Anion Gap 16 mmol/L (10-20); BUN (Urea Nitrogen) 15 mg/dL (8.4-25.7); Bilirubin, Total 0.7 mg/dL (0.2-1.2); Calc. Creatinine Clearance 0 mL/min (70-130); Calcium 9.4 mg/dL (7.8-10.44); Carbon Dioxide 22 mmol/L (23-31); Chloride 107 mmol/L (98-107); Estimated GFR 66; Globulin 3.4 g/dL (2.4-3.5); Glucose 177 mg/dL (80-115); Potassium 3.9 mmol/L (3.5-5.1); Protein, Total 7.3 g/dL (5.8-8.1); Sodium 141 mmol/L (136-145)
[2023-04-21] MEDS ORDERED: Aspirin Chewable 81 MG TAB ONE (13:11)
[2023-04-21] MEDS ORDERED: Furosemide 40 MG/4 ML VIAL ONE (13:11)
[2023-04-21 13:24] LABS: Bilirubin Small (Negative); Blood, Urine Negative (Negative); Clarity Clear (Clear); Glucose, Urine (Dipstick) Negative (Negative); Ketone, Urine Negative (Negative); Leukocyte Negative (Negative); Nitrite Negative (Negative); Protein, Urine (Dipstick) Negative (Neg-Trace); Specific Gravity, Urine 1.025 (1.005-1.030); pH, Urine 5.5 (5.0-9.0)
[2023-04-21 13:34] LABS: Bacteria/HPF Rare-Few HPF (None Seen); RBC/HPF 0-3 HPF (0-3); WBC/HPF None Seen HPF (0-3)
[2023-04-21] MEDS ORDERED: Iopamidol 370 76% 100 ML VIAL ONE (14:11)
[2023-04-21] MEDS ORDERED: Lorazepam 2 MG/ML VIAL ONE (16:11)
== END 2023-04-21 18:05 | disposition short-term general hospital (02) ==
LOC: BURERS 11:36
DX: I11.0 Hypertensive heart disease with heart failure (principal); I50.9 Heart failure, unspecified; Z79.899 Other long term (current) drug therapy
CPT/HCPCS: 71046; 71275; 80053; 81001; 83880; 84484; 85025; 85379; 93005; 96374; 96375; J1940; J2060; Q9967

== ENCOUNTER 2023-04-25 02:40 | Emergency (ER) | payer OTHER, MEDICAID ==
[2023-04-25] MEDS ORDERED: Morphine 10 MG/0.5 ML ORAL SYRINGE ONE (03:35)
[2023-04-25] MEDS ORDERED: Morphine 10 MG/ML VIAL ONE (03:35)
[2023-04-25 04:02] LABS: #Basophils 0.1 thou/uL (0.0-0.2); #Eosinphils 0.1 thou/uL (0.0-0.7); #Lymphocytes 2.2 thou/uL (1.20-3.40); #Monocytes 0.8 thou/uL (0.11-0.59); #Neutrophils 5.2 thou/uL (1.40-6.50); %Basophils 1.2 % (0.0-1.0); %Eosinophils 1.4 % (0.0-10.0); %Lymphocytes 26.3 % (21.0-51.0); %Monocytes 9.4 % (0.0-10.0); %Neutrophils 61.7 % (42.0-75.0); Hematocrit 52.7 % (42.0-52.0); Hemoglobin 16.8 g/dL (14.0-18.0); Mean Corpuscular HGB CONC 31.8 g/dL (32.0-36.0); Mean Corpuscular Hemoglobin 27.8 pg (27.0-31.0); Mean Corpuscular Volume 87.4 fl (78.0-98.0); Mean Platelet Volume 7.1 fL (7.4-10.4); Platelet Count 221 10x3/uL (130-400); RBC Distribution Width 11.5 % (11.5-14.5); Red Blood Cell (RBC) Count 6.02 mill/uL (4.70-6.10); White Blood Cell (WBC) Count 8.4 10x3/uL (4.8-10.8)
[2023-04-25 04:06] LABS: ALT (SGPT) 45 U/L (8-55); AST (SGOT) 33 U/L (5-34); Albumin 4.1 g/dL (3.4-4.8); Anion Gap 18 mmol/L (10-20); BUN (Urea Nitrogen) 16 mg/dL (8.4-25.7); Bilirubin, Total 0.7 mg/dL (0.2-1.2); Calc. Creatinine Clearance 0 mL/min (70-130); Calcium 9.7 mg/dL (7.8-10.44); Carbon Dioxide 20 mmol/L (23-31); Chloride 105 mmol/L (98-107); Estimated GFR 66; Globulin 3.1 g/dL (2.4-3.5); Glucose 126 mg/dL (80-115); Lipase 67 U/L (8-78); Potassium 3.9 mmol/L (3.5-5.1); Protein, Total 7.2 g/dL (5.8-8.1); Sodium 139 mmol/L (136-145)
[2023-04-25 04:12] LABS: Bilirubin Negative (Negative); Blood, Urine Trace (Negative); Clarity Clear (Clear); Glucose, Urine (Dipstick) >=1000 mg/dL (Negative); Ketone, Urine Negative (Negative); Leukocyte Negative (Negative); Nitrite Negative (Negative); Protein, Urine (Dipstick) Negative (Neg-Trace); Specific Gravity, Urine 1.025 (1.005-1.030)
[2023-04-25 04:13] LABS: Alkaline Phosphatase 77 U/L (40-110)
[2023-04-25 04:32] LABS: Bacteria/HPF Rare-Few HPF (None Seen); CAUTI Indications for Culture Acute Hematuria; Squamous Epithelial 0-3 HPF (0-3); Urine Culture Reflex No No
== END 2023-04-25 06:11 | disposition home or self-care (01) ==
LOC: BURERS 02:40
DX: M54.9 Dorsalgia, unspecified (principal); M54.6 Pain in thoracic spine
CPT/HCPCS: 36415; 74176; 80053; 81001; 83605; 83690; 85025; 93005; 96372; J2270

== ENCOUNTER 2024-05-09 09:01 | Outpatient (CLI) | payer OTHER, MEDICAID | END 2024-05-09 09:02 | disposition home or self-care (01) | LOC: BURCT 09:01 | PROVIDERS: ATTEND Urology | DX: Z12.5 Encounter for screening for malignant neoplasm of prostate (principal); N20.0 Calculus of kidney; N40.1 Benign prostatic hyperplasia with lower urinary tract symptoms; R35.1 Nocturia; N13.8 Other obstructive and reflux uropathy; J98.11 Atelectasis; J84.10 Pulmonary fibrosis, unspecified; K57.30 Diverticulosis of large intestine without perforation or abscess without bleeding; M43.8X4 Other specified deforming dorsopathies, thoracic region | CPT/HCPCS: 74176 ==